=== PATIENT | female | born 1975 | race Caucasian/White ===

== ENCOUNTER 2020-10-13 11:22 | Day surgery (SDC) | payer BC, MEDICARE, OTHER ==
[2020-10-11 13:58] VITALS: BMI 31.8
[~2020-10-13 11:22] MED LIST: LACTATED RINGERS 1,000 ML IV SCH
[2020-10-13 12:31] VITALS: TEMP 98
[2020-10-13] MEDS ORDERED: LIDOCAINE 1% (10MG/ML) FOR IV START INTRADERMA ONE (12:31)
[2020-10-13] MEDS ORDERED: LIDOCAINE 1% INJ 10MG/ML (20 ML MDV) ONE (13:19)
[2020-10-13] MEDS ORDERED: PROPOFOL 10 MG/ML 20 ML VIAL IV ONE (13:19)
--- NOTE | 2020-10-13 13:44 | P.PCN ---
Date of Procedure: 10/13/20 Procedure(s) Performed: BRIEF HISTORY: Patient is a 45-year-old, pleasant, white female scheduled for an upper endoscopy as a part of evaluation of anemia and intermittent epigastric pain for the last few months duration. 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 She also has history of mild dysplastic syndrome. Recently her hemoglobin dropped to 7 g/dL.. PROCEDURE PERFORMED: Esophagogastroduodenoscopy with argon plasma coagulation. PREOPERATIVE DIAGNOSIS: Anemia/epigastric pain. IV sedation per anesthesia. PROCEDURE: After informed consent was obtained, the patient was brought into [facility] endoscopy unit. IV sedation was administered by Anesthesia under continuous monitoring. Initially the Olympus GIF-140 video endoscope was inserted into the mouth. Esophagus intubated without any difficulty. It was gradually advanced into the stomach and duodenum and carefully examined. The bulb and the second part of the duodenum appeared normal. The scope at this time was withdrawn to the stomach, adequately insufflated with air, and upon careful examination, mucosa of the antrum, had moderately severe gastric antral vascular ectasia with some oozing in several areas. At this time argon plasma coagulation was performed and good hemostasis was achieved. Mucosa of the body, cardia and the fundus appeared normal. The scope was then withdrawn into the esophagus. The GE junction was located at 39 cm from the incisors. Mild erythema of the GE junction consistent with LA grade a reflux esophagitis. The rest of the esophagus appeared normal. There were no erosions or ulcerations seen and the patient tolerated the procedure well. IMPRESSION: 1. 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 2. Mild esophagitis. RECOMMENDATIONS: The findings of this examination were discussed with the patient as well as her family. She was advised to continue with Prilosec 20 mg daily. Monitor CBC frequent. Follow with Dr. Castellon as scheduled.
[2020-10-13 14:01] VITALS: BP 108/72; PULSE 82; RESP 16
== END 2020-10-13 14:49 | disposition home or self-care (01) ==
LOC: ORWHC2ENDO 11:22
PROVIDERS: ATTEND Internal Medicine Gastroenterology
DX: K31.819 Angiodysplasia of stomach and duodenum without bleeding (principal); K20.90 Esophagitis, unspecified without bleeding; D64.9 Anemia, unspecified; R10.13 Epigastric pain; E03.9 Hypothyroidism, unspecified; K21.9 Gastro-esophageal reflux disease without esophagitis; Z79.890 Hormone replacement therapy; Z79.899 Other long term (current) drug therapy
CPT/HCPCS: 81025; 43255; J2001; J2704; 43270